=== PATIENT | female | born 1955 | race Caucasian/White ===

== ENCOUNTER 2016-08-27 19:23 | Day surgery (SDC) | payer BC ==
[~2016-08-27] VITALS: Ht 170.2 cm; Wt 83.6 kg
[~2016-08-27 19:23] MED LIST: AMOX500C2 PO; ASPI325T PO; FLUT9.9S EA NOSTRIL; GUAI120015 PO; IBUP-1547 PO; LEVO25TA9 PO; POLY17PO6 PO; ROSU20TA23 PO; TRAM50TA53 PO; VARE1TAB22 PO; Zicam; [UNRECOGNIZED DRUG - OTHER] PO
--- OUTSIDE RECORDS SUMMARY | 2016-08-27 19:27 | XMS REPORT | Referral Summary ---
Author Author [facility] Organization [facility] Address Unknown Phone Unavailable Care Team Providers Care Hair Worker Name Role Phone Sully Lerma Primary Care Physician [phone] Encounter Date(s): 03/25/16 - 03/25/16 [facility] [address] [place] [address] HEATH Lujan [id number] Discharge Diagnosis: Visit for suture removal Discharge Disposition: 01-Home or Self Care Attending Physician: Laquita Negron APRN Admitting Physician: Laquita Negron APRN Vital Signs Most recent to 1 oldest [Reference Range]: Temperature Tympanic 36.7 degC [36.6-38.1 degC] (03/25/16 10:46 AM) Problem List Condition Effective Dates Status Health Status Informant Bladder Active problem(Confirmed) Bronchitis(Confirmed Active ) Depression(Confirmed Active ) Deviated Active septum(Confirmed) 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 , 1 tabs Oral BID Start Date: 03/20/16 Status: Ordered Chantix Starter Pack 0.5 mg-1 mg oral tablet 1 tabs, Oral, BID, as directed on package labeling, # 53 tabs, 0 Refill(s) Start Date: 01/23/16 Status: Ordered CoQ10 mg, Oral, Daily, 0 Refill(s) Start Date: 09/07/15 Status: Ordered Crestor 20 mg oral tablet 20 mg 1 tabs, Oral, Daily, # 90 tabs, 3 Refill(s), Pharmacy: [id number], 1 tabs Oral Daily Start Date: 12/18/15 Status: Ordered Fish Oil oral capsule 1 caps, Oral, Daily, # 100 caps, 0 Refill(s) Start Date: 09/07/15 Status: Ordered Ginkgo Biloba oral capsule Oral, Daily, 0 Refill(s) Start Date: 09/07/15 Status: Ordered ibuprofen 600 mg oral tablet 600 mg 1 tabs, Oral, QID, as needed for pain, # 40 tabs, 0 Refill(s) Start Date: 02/28/16 Status: Ordered levothyroxine 25 mcg (0.025 mg) oral tablet 25 mcg 1 tabs, Oral, Daily, # 90 tabs, 3 Refill(s), Pharmacy: [id number], 1 tabs Oral Daily Start Date: 12/18/15 Status: Ordered Multivitamins oral tablet 1 tabs, Oral, Daily Start Date: 01/25/14 Status: Ordered naproxen 500 mg oral tablet 500 mg 1 tabs, Oral, BID, # 60 tabs, 0 Refill(s), Pharmacy: [id number], 1 tabs Oral BID Start Date: 12/03/15 Status: Ordered Cindy's wort oral tablet Oral, Daily, 0 Refill(s) Start Date: 09/07/15 Status: Ordered Ultram 50 mg oral tablet 50 mg 1 tabs, Oral, q6hr, as needed for pain, # 30 tabs, 0 Refill(s) Start Date: 02/22/16 Stop Date: 02/21/17 Status: Ordered Results No data available for this section Immunizations Vaccine Date Refusal Reason tetanus/diphth/pertuss (Tdap) adult/adol 02/04/10 pneumococcal 23-polyvalent vaccine 02/18/10 tetanus-diphth toxoids (Td) adult/adol 12/30/99 Procedures Procedure Date Related Diagnosis Body Site Basal cell carcinoma of ear1 03/13/16 Colonoscopy2, 3 03/15/10 gall bladder4 1992 Appendectomy 1982 Hysterectomy 1982 Tonsillectomy 1964 Arthroscopy of shoulder Fusion of c-spine Laminectomy Polypectomy - vocal cord 1right ear, excised in the operating room., margins clear 2See Conversion Document 3See NextGen: 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 4See Conversion Document Social History Social History Type Response Smoking Status Former smoker; Type: Cigarettes Assessment and Plan Extracted from: Title: Office Visit Note Author: Laquita Negron CHILDREN'S MINISTRY DIRECTOR Date: 03/25/16 Assessment/Plan 1.Visit for suture removal Pathologyindicates basal cell carcinoma margins clear. Sutures removed without difficulty and Steri-Strips applied. Return to our office on an as-needed basis and continue with general medical care through your primary care physician. Ordered: Postoperative Est [id number] Extracted from: Title: Ambulatory Patient Education Author: Laquita Negron CHILDREN'S MINISTRY DIRECTOR Date : 03/25/16 Procedures Suture Removal, Care After Refer to this sheet in the next few weeks. These instructions provide you with information on caring for yourself after your procedure. Your health care provider may also give you more specific instructions. Your treatment has been planned according to current medical practices, but problems sometimes occur. Call your health care provider if you have any problems or questions after your procedure. WHAT TO EXPECT AFTER THE PROCEDURE After your stitches (sutures) are removed, it is typical to have the following: Some discomfort and swelling in the wound area. Slight redness in the area. HOME CARE INSTRUCTIONS If you have skin adhesive strips over the wound area, do not take the strips off. They will fall off on their own in a few days. If the strips remain in place after 14 days, you may remove them. Change any bandages (dressings) at least once a day or as directed by your health care provider. If the bandage sticks, soak it off with warm, soapy water. Apply cream or ointment only as directed by your health care provider. If using cream or ointment, wash the area with soap and water 2 times a day to remove all the cream or ointment. Rinse off the soap and pat the area dry with a clean towel. Keep the wound area dry and clean. If the bandage becomes wet or dirty, or if it develops a bad smell, change it as soon as possible. Continue to protect the wound from injury. Use sunscreen when out in the sun. New scars become sunburned easily. SEEK MEDICAL CARE IF: You have increasing redness, swelling, or pain in the wound. You see pus coming from the wound. You have a fever. You notice a bad smell coming from the wound or dressing. Your wound breaks open (edges not staying together). This information is not intended to replace advice given to you by your health care provider. Make sure you discuss any questions you have with your health care provider. Document Released: 01/27/2002 Document Revised: 02/22/2014 Document Reviewed: [employer] Interactive Patient Education 2016 [employer] No follow up information was provided.
--- OUTSIDE RECORDS SUMMARY | 2016-08-27 19:28 | XMS REPORT | Referral Summary ---
Author Author [facility] Organization [facility] Address Unknown Phone Unavailable Care Team Providers Care Cloth Washer Name Role Phone Sully Lerma Primary Care Physician [phone] Encounter VC Date(s): 02/27/16 - 02/27/16 [facility] [address] [place] [address] [place] [id number] Discharge Diagnosis: Changing skin lesion Discharge Disposition: 01-Home or Self Care Attending Physician: Brian Amaya MD Referring Physician: Yrn Lerma MD Vital Signs Most recent to 1 oldest [Reference Range]: Temperature Tympanic 36.7 degC [36.6-38.1 degC] (02/27/16 1:06 PM) Peripheral Pulse 64 bpm Rate [60-100 bpm] (02/27/16 1:06 PM) Respiratory Rate 18 br/min [14-20 br/min] (02/27/16 1:06 PM) Blood Pressure 122/70 mmHg [90-140/60-90 mmHg] (02/27/16 1:06 PM) SpO2 98 % (02/27/16 1:06 PM) Problem List Condition Effective Dates Status Health [...] 1 tabs, Oral, BID, # 56 tabs, 3 Refill(s), Pharmacy: [id number] , 1 tabs Oral BID Start Date: 01/23/16 Status: Ordered Chantix Starter Pack 0.5 mg-1 mg oral tablet 1 tabs, Oral, BID, as directed on package labeling, # 53 tabs, 0 Refill(s) Start Date: 01/23/16 Status: Ordered ciprofloxacin 500 mg, Oral, Daily, 0 Refill(s) Start Date: 01/23/16 Stop Date: 02/02/16 Status: Ordered CoQ10 mg, Oral, Daily, 0 Refill(s) Start Date: 09/07/15 Status: Ordered Crestor 20 mg oral tablet 20 mg 1 tabs, Oral, Daily, # 90 tabs, 3 Refill(s), Pharmacy: [id number], 1 tabs Oral Daily Start Date: 12/18/15 Status: Ordered Fish Oil oral capsule 1 caps, Oral, Daily, # 100 caps, 0 Refill(s) Start Date: 09/07/15 Status: Ordered Ginkgo Biloba oral capsule Oral, Daily, 0 Refill(s) Start Date: 09/07/15 Status: Ordered levothyroxine 25 mcg (0.025 mg) oral tablet 25 mcg 1 tabs, Oral, Daily, # 90 tabs, 3 Refill(s), Pharmacy: [id number], 1 tabs Oral Daily Start Date: 12/18/15 Status: Ordered Multivitamins oral tablet 1 tabs, Oral, Daily Start Date: 01/25/14 Status: Ordered naproxen 500 mg oral tablet 500 mg 1 tabs, Oral, BID, # 60 tabs, 0 Refill(s), Pharmacy: [id number], 1 tabs Oral BID Start Date: 12/03/15 Status: Ordered Harborton's wort oral tablet Oral, Daily, 0 Refill(s) [...] Procedures Procedure Date Related Diagnosis Body Site Colonoscopy1, 2 03/15/10 gall bladder3 1992 Appendectomy 1982 Hysterectomy 1982 Tonsillectomy 1964 Arthroscopy of shoulder Fusion of c-spine Laminectomy Polypectomy - vocal cord 1See Conversion Document 2See NextGen: 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 3See Conversion Document Social History Social History Type Response Smoking Status Former smoker; Type: Cigarettes Assessment and Plan Extracted from: Title: Office Visit Note Author: Brian Amaya MD Date: 02/27/16 Assessment/Plan 1.Changing skin lesion Ordered: Office Visit Level 2 New [address] Plan: Excisional Biopsy of Suspicious Skin Lesion Involving Right Pinna I did review the patient's chart including a office note performed by PCPs tacking stitch remover from January 23, 2016. I informed the patient that this skin lesion involving her right earin my opinion appeared suspicious in nature and I would therefore recommend proceeding with an excisional biopsy. Patient understood and wished to proceed. The area of concern was prepped and draped in sterile fashion. One percent lidocaine with epinephrine was injected circumferentially around the skin lesion. The lesion was excised in a standard elliptical fashion. The elliptical incision was 1.0 cm in width and 2 cm in length. Aportion of the underlying cartilage was also excised facilitate closure. Hemostasis obtained with electrocautery.The incision was closed in layers with 3-0 Vicryl subcuticular stitches and 4-0 Prolene for skin edges. The patient was given post excision instruction and told to return to the clinic in 10-14 days, or sooner if any concerns arise.
--- OUTSIDE RECORDS SUMMARY | 2016-08-27 19:28 | XMS REPORT | Referral Summary ---
Author Author [facility] Organization [facility] Address Unknown Phone Unavailable Care Team Providers Care Cassandra Developer Name Role Phone Sully Lerma Primary Care Physician [phone] Encounter VC Date(s): 03/11/16 - 03/11/16 [facility] [address] [place] [address] HEATH Lujan [id number] Discharge Diagnosis: CA skin, basal cell Discharge Disposition: 01-Home or Self Care Attending Physician: Brian Amaya MD Admitting Physician: Brian Amaya MD Referring Physician: Yrn Lerma MD Vital Signs Most recent to 1 oldest [Reference Range]: Temperature Tympanic 36.7 degC [36.6-38.1 degC] (03/11/16 3:31 PM) Problem List Condition Effective Dates Status [...] BID, # 56 tabs, 3 Refill(s), Pharmacy: [id number] , 1 tabs Oral BID Start Date: [...] Daily, # 90 tabs, 3 Refill(s), Pharmacy: [id number], 1 tabs Oral Daily [...] Daily, # 90 tabs, 3 Refill(s), Pharmacy: [id number], 1 tabs Oral Daily Start Date: 12/18/15 Status: Ordered Multivitamins oral tablet 1 tabs, Oral, Daily Start Date: 01/25/14 Status: Ordered naproxen 500 mg oral tablet 500 mg 1 tabs, Oral, BID, # 60 tabs, 0 Refill(s), Pharmacy: [id number], 1 tabs Oral BID Start Date: 12/03/15 Status: Ordered Sweet Water 5 mg-325 mg oral tablet 1 tabs, Oral, q6hr, as needed for pain, # 25 tabs, 0 Refill(s), other reason (Rx ) Start Date: 02/28/16 Stop Date: 03/13/16 Status: Ordered Cindy's wort oral tablet Oral, [...] Cigarettes Assessment and Plan Extracted from: Title: Ambulatory Patient Education Author: Brian Amaya MD Date: Family Medicine Basal Cell Carcinoma Basal cell carcinoma is the most common form of skin cancer. It begins in the basal cells, which are at the bottom of the outer skin layer (epidermis). CAUSES Sun exposure is the most common cause of basal cell carcinoma. Basal cell carcinoma occurs most often on parts of the body that are frequently exposed to the sun, including the: Scalp. Ears. Neck. Face. Arms. Backs of the hands. Legs. However, basal cell carcinoma can occur anywhere on the body. Rarely, tumors develop on areas not exposed to the sun. Other causes of basal cell carcinoma can include: Exposure to arsenic. Exposure to radiation. Certain genetic syndromes, such as xeroderma pigmentosum. RISK FACTORS People at highest risk for basal cell carcinoma include those with: Fair skin. Blonde or red hair. Blue, green, or issa eyes. Childhood freckling. Factors that increase your risk for basal cell carcinoma include: Sun exposure over long periods of time. Childhood sun exposure appears to be a more significant factor than sun exposure as an adult. Repeated sunburns. Use of tanning beds. Having a weakened immune system. SYMPTOMS Five signs of basal cell carcinoma are: An open sore that bleeds, oozes, or crusts. The sore may remain open for 3 or more weeks. This can be an early sign of basal cell carcinoma. Basal cell carcinoma can mimic a pimple that will not heal. A reddish or irritated area which may crust, itch, or cause discomfort. This may occur on areas expose d to the sun. These patches might be easier felt than seen. A shiny, pearly, or translucent bump that is pink, red, or white. The bump may also be aguirre, black, or brown, especially in dark haired people. These bumps can be confused with moles. A pink growth with a slightly elevated, rolled border, and a crusted indentation in the center. As the growth slowly enlarges, tiny blood vessels may develop on the surface. A scar-like white, yellow, or waxy area that looks like shiny, stretched skin. It often has irregular borders. This may be a sign of more aggressive basal cell carcinoma. DIAGNOSIS Your caregiver may be able to tell what is wrong by doing a physical exam. Often , a tissue sample (biopsy) is also taken. The tissue is examined under a microscope. TREATMENT The treatment for basal cell carcinoma depends on the type, size, location, and number of tumors. Possible treatments include: Mohs surgery. This is a procedure done by a skin doctor (knotting machine operator or Mohs surgeon) in his or her office. The cancerous cells are removed layer by layer. This treatment has a high cure rate. Surgical removal of the tumor. Freezing the tumor with liquid nitrogen (cryosurgery). Plastic surgery to remove the tumor, in the case of large tumors. Radiation. This may be used for tumors on the face. Photodynamic therapy. A chemical cream is applied to the skin and light exposure is used to activate the chemical. Chemical treatments, such as imiquimod cream and interferon injections. This may be used to remove superficial tumors with minimal scarring. Electrodesiccation and curettage. This involves alternately scraping and burning the tumor, using an electric current to control bleeding. Basal cell carcinoma can almost always be cured. It rarely spreads to other areas of the body (metastasizes). Basal cell carcinoma may come back at the same location (recur), but it can be treated again if this occurs. PREVENTION Avoid the sun between 10:00 a.m. and 4:00 pm when it is the strongest. Use a sunscreen or sunblock with a sun protection factor of 30 or greater. Apply sunscreen at least 30 minutes before exposure to the sun. Reapply sunscreen every 2 to 4 hours while you are outside, after swimming, and after excessive sweating. Always wear protective hats, clothing, and sunglasses with ultraviolet protection. Avoid tanning beds. HOME CARE INSTRUCTIONS Avoid unprotected sun exposure. Follow your caregiver's instructions for self-exams. Look for new spots or changes in your skin. Keep all follow-up appointments as directed by your caregiver. SEEK MEDICAL CARE IF: You notice any new spots or changes in your skin. You have had a basal cell carcinoma tumor removed and you notice a new growth in the same location. This information is not intended to replace advice given to you by your health care provider. Make sure you discuss any questions you have with your health care provider. Document Released: 11/08/2003 Document Revised: 11/02/2012 Document Reviewed: [employer] Interactive Patient Education 2016 [employer] No follow up information was provided. Extracted from: Title: Office Visit Note Author: Brian Amaya MD Date: 03/11/16 Assessment/Plan 1.CA skin, basal cell Ordered: Postoperative Est [id number] Plan: Reexcision of Basal Cell CarcinomaInvolving Right Ear with Frozen Section, Possible Full Thickness Skin Grafting to Provide Closure. I did go over the patient's pathology report with herwhichdid return revealing that of abasal cell cancer involving her right ear. Unfortunately the lesion did extend to one of the lateral margins. The original lesionwason the order about 1.5 cmin length and about 0.8 cm in width. I informed the patient that I felt that we had a few options available to us. One option is to go ahead and proceed with reexcision inanoffice settingand attempt toobtain clear margins. I informed the patient that thereis a good likelihood thatclear marginswould be present upon reexcision. The other option would be is to proceed with reexcisionin the hospital setting under some sedationand submit the specimenfor a frozen section to document clear margins before proceedingwith closure. I informed the patient that I felt that it was unlikely but it is possible that askin graft may benecessary to provideclosure after reexcision. Patient elected to proceed with reexcision in the hospital. Patient will be scheduled.
--- OUTSIDE RECORDS SUMMARY | 2016-08-27 19:28 | XMS REPORT | Referral Summary ---
Author Author [facility] Organization [facility] Address Unknown Phone Unavailable Care Team Providers Care Paper Gluing Operator Name Role Phone Sully Lerma Primary Care Physician [phone] Encounter VC Date(s): 03/14/16 - 03/14/16 [facility] [address] [place] [address] [id number] Discharge Diagnosis: Post-op pain Discharge Disposition: 01-Home or Self Care Attending Physician: Brian Amaya MD Admitting Physician: Brian Amaya MD Referring Physician: Yrn Lerma MD Vital Signs Most recent to 1 oldest [Reference Range]: Temperature Tympanic 36.6 degC [36.6-38.1 degC] (03/14/16 12:24 PM) Problem List Condition Effective Dates Status [...] BID, # 56 tabs, 3 Refill(s), Pharmacy: [id number] , 1 tabs Oral BID Start Date: [...] Daily, # 90 tabs, 3 Refill(s), Pharmacy: [id number], 1 tabs Oral Daily Start [...] Daily, # 90 tabs, 3 Refill(s), Pharmacy: [id number], 1 tabs Oral Daily Start Date: 12/18/15 Status: Ordered Multivitamins oral tablet 1 tabs, Oral, Daily Start Date: 01/25/14 Status: Ordered naproxen 500 mg oral tablet 500 mg 1 tabs, Oral, BID, # 60 tabs, 0 Refill(s), Pharmacy: [id number], 1 tabs Oral BID Start Date: 12/03/15 Status: Ordered [place] 7.5 mg-325 mg oral tablet 1 tabs, Oral, q6hr, as needed for pain, # 20 tabs, 0 Refill(s) Start Date: 03/14/16 Stop Date: 03/21/16 Status: Ordered [place]'s wort oral tablet Oral, Daily, 0 Refill(s) Start Date: 09/07/15 Status: Ordered Ultram 50 mg oral tablet 50 mg 1 tabs, Oral, q6hr, as needed for pain, # 30 tabs, 0 Refill(s) Start Date: 02/22/16 Stop Date: 02/21/17 Status: Ordered Results No data available for this section Immunizations Vaccine Date Refusal Reason tetanus/diphth/pertuss (Tdap) adult/adol 9/20/10 pneumococcal 23-polyvalent vaccine 02/18/10 tetanus-diphth toxoids (Td) [...] Title: Office Visit Note Author: Laquita Negron TELEPHONE AD TAKER Date: 03/14/16 Assessment/Plan 1.Post-op pain Ordered: Postoperative Est 63028 This is a very tender areaand I am not surprised suture having a noticeable amount of postoperative pain. The incisionlooks good, there is no unexpectededema or redness. We'll go ahead and get toastronger prescription of [place], the 7.5 mgin youmay want to use this for a day and then drop down to the 5 mg and gradually get yourself weaned off to only taking ibuprofen. These narcotics are extremely constipating and MiraLAX should be taken on a daily basis. Keep the post op appointment for 2 weeks from now for suture removal. Call or return sooner if pain gets worse, there is increasing rednes or drainage from the incision, or other concerns. Extracted from: Title: Ambulatory Patient Education Author: Laquita Negron TELEPHONE AD TAKER Date : 03/14/16 Ophthalmology Pain Medicine Instructions HOW CAN PAIN MEDICINE AFFECT ME? You were given a prescription for pain medicine. This medicine may make you tired or drowsy and may affect your ability to think clearly. Pain medicine may also affect your ability to drive or perform certain physical activities. It may not be possible to make all of your pain go away, but you should be comfortable enough to move, breathe, and take care of yourself. HOW OFTEN SHOULD I TAKE PAIN MEDICINE AND HOW MUCH SHOULD I TAKE? Take pain medicine only as directed by your health care provider and only as needed for pain. You do not need to take pain medicine if you are not having pain, unless directed by your health care provider. You can take less than the prescribed dose if you find that a smaller amount of medicine controls your pain. WHAT RESTRICTIONS DO I HAVE WHILE TAKING PAIN MEDICINE? Follow these instructions after you start taking pain medicine, while you are taking the medicine, and for 8 hours after you stop taking the medicine: Do not drive. Do not operate machinery. Do not operate power tools. Do not sign legal documents. Do not drink alcohol. Do not take sleeping pills. Do not supervise children by yourself. Do not participate in activities that require climbing or being in high places. Do not enter a body of watersuch as a garcia, river, ocean, spa, or swimming poolwithout an adult nearby who can monitor and help you. HOW CAN I KEEP OTHERS SAFE WHILE I AM TAKING PAIN MEDICINE? Store your pain medicine as directed by your health care provider. Make sure that it is placed where children and pets cannot reach it. Never share your pain medicine with anyone. Do not save any leftover pills. If you have any leftover pain medicine, get rid of it or destroy it as directed by your health care provider. WHAT ELSE DO I NEED TO KNOW ABOUT TAKING PAIN MEDICINE? Use a stool softener if you become constipated from your pain medicine. Increasing your intake of fruits and vegetables will also help with constipation. Write down the times when you take your pain medicine. Look at the times before you take your next dose of medicine. It is easy to become confused while on pain medicine. Recording the times helps you to avoid an overdose. If your pain is severe, do not try to treat it yourself by taking more pills than instructed on your prescription. Contact your health care provider for help. You may have been prescribed a pain medicine that contains acetaminophen. Do not take any other acetaminophen while taking this medicine. An overdose of acetaminophen can result in severe liver damage. Acetaminophen is found in many uwex-syl-ylnrdyv (OTC) and prescription medicines. If you are taking any medicines in addition to your pain medicine, check the active ingredients on those medicines to see if acetaminophen is listed. WHEN SHOULD I CALL MY HEALTH CARE PROVIDER? Your medicine is not helping to make the pain go away. You vomit or have diarrhea shortly after taking the medicine. You develop new pain in areas that did not hurt before. You have an allergic reaction to your medicine. This may include: Itchiness. Swelling. Dizziness. Developing a new rash. WHEN SHOULD I CALL 911 OR GO TO THE EMERGENCY ROOM? You feel dizzy or you faint. You are very confused or disoriented. You repeatedly vomit. Your skin or lips turn pale or bluish in color. You have shortness of breath or you are breathing much more slowly than usual. You have a severe allergic reaction to your medicine. This includes: Developing tongue swelling. Having difficulty breathing. This information is not intended to replace advice given to you by your health care provider. Make sure you discuss any questions you have with your health care provider. Document Released: 08/10/2001 Document Revised: 09/18/2015 Document Reviewed: [employer] Interactive Patient Education 2016 [employer] Inc. No follow up information was provided.
--- OUTSIDE RECORDS SUMMARY | 2016-08-27 19:28 | XMS REPORT | Continuity of Care Document ---
Author Author [facility] Organization [facility] Address Unknown Phone Unavailable Support Name Relationship Address Phone ADARSH, SONALIBRII JAQUEZ Caregiver [address] [place] [address] Unavailable NELIDA HORAN MD Caregiver [address] [place] [address] Unavailable NICKI LESLIE Next Of Kin Unknown [phone] Insurance Providers Guarantor Bhavani Hill Address [address] [place] [address] * Email DENIED PT PORTAL Payer [facility] Policy Number [id number] Subscriber's Name Bhavani Hill Savana Relationship 18 Self Group Number [id number] Effective Date 08 Advance Directives Directive Response Recorded Date/Time Ordered Resuscitation Status Full Code 05/07/16 1:15pm Resuscitation Documents on File No 05/08/16 7:05am DPOA for Healthcare Only No 05/08/16 7:05am Living Will No 05/08/16 7:05am Problems No problem information available. Medications Current Home Medications Medication Dose Units Route Directions Days Qty Instructions Start Date Amoxicillin 500 Mg Capsule 1 Cap Oral Four Times Daily 05/07/16 Aspirin 325 Mg Tablet 1 Tab Oral Twice A Day 04/21/16 Fluticasone Propionate (Flonase Allergy Relief 50 Mcg/Actuation Nasal) 9.9 Ml [place].susp 2 [place] Each Nostril Daily 04/21/16 Guaifenesin (Mucinex) 1,200 Mg Tbbp.12hr 1 Tab Oral Twice A Day 30 Tablet 05/07/16 Ibuprofen 800 Mg Tablet 1 Tab Oral Every 6 Hours as needed for Pain 05/07/16 Levothyroxine Sodium 25 Mcg Tablet 25 Mcg Oral Before Breakfast Once daily before breakfast 03/13/16 Polyethylene Glycol 3350 (Miralax) 17 Gm Powd.pack 17 G Oral Daily as needed for Constipation 1 Bottle Take 17 Grams (1 capful), by mouth, once a day. 05/08/16 Rosuvastatin Calcium 20 Mg Tablet 1 Tab Oral Daily 03/12/16 Tramadol Hcl (Ultram) 50 Mg Tablet 1-2 Tab Oral Every 6 Hours as needed for Pain 30 Tablet 05/08/16 Varenicline Tartrate (Chantix) 1 Mg Tablet 1 Tab Oral Daily 03/12 Zicam 1 Dose Daily as needed for Cough/Congestion 04/21/16 Zijamoringaoleifera 1 Cap Oral Daily 04/21/16 Past Home Medications Medication Directions Ordered Status Asa 81MG , Daily 09/30/08 Discontinued B 12 Complex , Daily 09/30/08 Discontinued Citalopram Hydrobromide (Celexa) 20 Mg Tablet, 20 Mg Oral Daily 09/30/08 Discontinued Cyclobenzaprine Hcl 10 Mg Tablet, 10 Mg Oral As Needed 03/15/10 Discontinued One A Day , Daily 09/30/08 Discontinued P-Ephed/Acetaminophen/Doxylamn (Tylenol Sinus Nighttime Caplet) 1 Tab Tablet, 1 Tab Oral Bedtime 09/08/10 Discontinued Tramadol Hcl 50 Mg Tablet, 50 Mg Oral As Needed 11/22/10 Discontinued Social History Social History Problem Response Recorded Date/Time Onset Date Status Reason for Hospitalization Arthroscopy left knee 05/08/2016 8:24am Not Applicable Not Applicable Chewing Tobacco Status No 04/21/2016 9:36am Not Applicable Not Applicable Hx Substance Use No 04/21/2016 9:36am Not Applicable Not Applicable Hx Alcohol Use Y occasionally 04/21/2016 9:36am Not Applicable Not Applicable Has the pt used tobacco in the last 12 months Yes 04/21/2016 9:36am Not Applicable Not Applicable Query Response Start Date Stop Date Smoking Status Former smoker Hospital Discharge Instructions Instructions: Care Instructions: Discharge Diet: Resume normal diet as tolerated. Discharge Activity: Maintain leg elevataion while sitting and sleeping at night. Put a pillow under the ankle/foot, NOT under the knee. Follow Up Appointments: A Physical Therapy prescription may have been given to you. This should be scheduled for 2-3 days after surery. The first goal in physical therapy will be to restore full range of motion, followed bu quadriceps and hamstring muscle strengthening. FOLLOW UP APPT WITH DR. HORAN ON 05/21/16 @ 10:00AM. Pending Lab / Results: No Pending Lab Patient Instructions: Take Aspirin 325 mg by [facility] twice a day to help prevent blood clots. Expected Signs/Symptoms: You may develop bruising around your knee and down into you calf. Do not be alarmed; this is normal following surgery. If you develop significant calf swelling, redness, or tenderness, you should contact our office promptly. You may also develop a low-grade fever after surgery (up to 101.5 degrees). This is normal. You should perform 10 deep down breaths with forced, full exhalation every hour while awake to help keep your temperature down. Notify Physician If: You should contact our office if you develop significant drainage from the surgical incision, redness, or fever above 102 degrees. During Business Hours:: Please call our office at [phone]. After Business Hours:: After office hours, please call [facility] at [phone] and have the sausage machine operator page the physician. Pain Management/Treatment: Use prescribed medications Wound/Incision Care: Keep the incisions clean and dry. On post-op day #2 you may remove the dressing and place Band-Aids. DO NOT apply creams or ointments (bacitracin, triple antibiotic) to the incisions. You may shower on post-op day #2 with a plastic bag or plastic wrap (saran wrap) and tape around the knee to cover the surgical sites. Keep the wounds dry at all times, until your sutures are removed by the doctor. Do not soak the knee in water or go swimming until your sutures are removed. Use the kari wrap for 3 days. If Polar Care was placed in the OR, it should be used continuously until the dressings are removed. Apply ice packs or the Polar Care to the area 20-30 minues four times per day after dressing removal. Always maintain a layer of protection between ice or the Polar Care and the skin. Frostbite CAN develop if the skin isn't protected. Keep the Polar Care machine loaded with fresh ice. Condition at time of discharge: Good Plan of Care Discharge Date 05/08/16 9:10am Instructions/Education Provided [facility] Surgical Services Prescriptions See Medication Section Functional Status Query Response Date Recorded Ability to complete ADL's impeded by No change May 08, 2016 7:05am Allergies, Adverse Reactions, Alerts Allergen Type Severity Reaction Status Last Updated hydrocodone bit Adverse Reaction Mild BUGS CRAWLING ON HER Active 09/08/10 oxycodone HCl Adverse Reaction Mild STOMACH PROBLEMS Active 09/08/10 Niacin Adverse Reaction Unknown SEVERE FLUSHING Active 04/21/16 Codeine Allergy Unknown UNSURE, WAS TOLD NOT TO TAKE IT AGAIN Active 09/08 Immunizations Query Response on File Recorded Date/Time Hx Influenza Vaccination Y 201504/21/16 9:36am Hx Pneumococcal Vaccination Y 200904/21/16 9:36am Hx Influenza Vaccination Y 201504/21/16 9:36am Vital Signs Acute Vital Signs Vital Response Date/Time Temperature (Fahrenheit) 97.3 deg F (96.8 - 99.1) 05/08/2016 8:13am Temperature (Calculated Celsius) 36.08521 degrees C (36.0 - 37.3) 05/08/2016 8:13am Temperature Source Temporal 05/08/2016 8:13am Pulse Rate (adult) 54 bpm (60 - 100) 05/08/2016 9:00am Respiratory Rate 17 breaths/min (10 - 20) 05/08/2016 9:00am O2 Sat by Pulse Oximetry 95 % (90 - 100) 05/08/2016 9:00am Oxygen Delivery Method Room Air 03/13/2016 10:45am Oxygen Delivery Method Room Air 05/08/2016 9:00am Oxygen Flow Rate 6.00 L/min 05/08/2016 8:20am Blood Pressure 114/58 mm Hg 05/08/2016 9:00am Blood Pressure Source Automatic Cuff 05/08/2016 9:00am Height (Feet) 5 feet 05/08/2016 6:20am Height (Inches) 7.50 inches 05/08/2016 6:20am Weight (Kilograms) 83.800 kg 05/08/2016 6:20am Body Mass Index (BMI) 28.5 05/08/2016 6:20am Results Laboratory Results Test Name Result Units Flags Reference Collection Date/Time Result Date/ Time Comments White Blood Count 7.9 T/MM3 4.5-11.0 03/13/2016 8:34am 03/13/2016 8: 48am Red Blood Count 4.59 M/MM3 4.00-5.20 03/13/2016 8:34am 03/13/2016 8: 48am Hemoglobin 13.6 GM/DL -03/13/2016 8:34am 03/13/2016 8:48am Hematocrit 40.6 % 36-46 03/13/2016 8:34am 03/13/2016 8:48am Mean Corpuscular Volume 88.5 UM3 80-100 03/13/2016 8:34am 03/13/2016 8: 48am Mean Corpuscular Hemoglobin 29.6 UUG 26-34 03/13/2016 8:34am 2015 8:48am Mean Corpuscular Hemoglobin Concent 33.5 GM/DL 31-37 03/13/2016 8:34am 03/13/2016 8:48am RDW Standard Deviation 43.2 FL 36.9-50.2 03/13/2016 8:34am 03/13/2016 8 :48am Platelet Count 227 T/MM3 130-400 03/13/2016 8:34am 03/13/2016 8:48am Mean Platelet Volume 10.0 UM3 9.4-12.4 03/13/2016 8:34am 03/13/2016 8: 48am Neutrophils (%) (Auto) 54.4 % 33-66 03/13/2016 8:34am 03/13/2016 8: 48am Lymphocytes (%) (Auto) 35.8 % 23-45 03/13/2016 8:34am 03/13/2016 8: 48am Monocytes (%) (Auto) 6.9 % 0-9.0 03/13/2016 8:34am 03/13/2016 8:48am Eosinophils (%) (Auto) 2.0 % 0-4 03/13/2016 8:34am 03/13/2016 8:48am Basophils (%) (Auto) 0.6 % 0-2 03/13/2016 8:34am 03/13/2016 8:48am Immature Granulocyte % (Auto) 0.3 % 0.0-0.5 03/13/2016 8:34am 2015 8:48am Absolute Neutrophils (auto) 4.3 T/MM3 1.8-7.7 03/13/2016 8:34am 2015 8:48am Absolute Lymphocytes (auto) 2.8 T/MM3 1-4.8 03/13/2016 8:34am 2015 8:48am Absolute Monocytes (auto) 0.6 T/MM3 0-0.8 03/13/2016 8:34am 03/13/2016 8:48am Absolute Eosinophils (auto) 0.2 T/MM3 0-0.5 03/13/2016 8:34am 2015 8:48am Absolute Basophils (auto) 0.1 T/MM3 0-0.2 03/13/2016 8:34am 03/13/2016 8:48am Absolute Immature Granulocyte (auto 0.02 T/MM3 0.00-0.03 03/13/2016 8: 34am 03/13/2016 8:48am Icterus Index < 2 0-7 05/08/2016 6:45am 05/08/2016 7:09am Chemistry Specimen Hemolysis < 15 0-25 05/08/2016 6:45am 05/08/2016 7 :09am 0-25: Specimen Exhibited No Hemolysis. Turbidity < 20 0-20 05/08/2016 6:45am 05/08/2016 7:09am Sodium Level 143 MEQ/L 134-144 05/08/2016 6:45am 05/08/2016 7:09am Potassium Level 4.0 MEQ/L 3.6-5 05/08/2016 6:45am 05/08/2016 7:09am Chloride Level 110 MEQ/L H 98-107 05/08/2016 6:45am 05/08/2016 7:09am Carbon Dioxide Level 23 MEQ/L 22-05/08/2016 6:45am 05/08/2016 7: 09am Anion Gap 10 MEQ/L 5-15 05/08/2016 6:45am 05/08/2016 7:09am Blood Urea Nitrogen 15.0 MG/DL 7-17 05/08/2016 6:45am 05/08/2016 7: 09am Creatinine 0.7 MG/DL 0.7-1.2 05/08/2016 6:45am 05/08/2016 7:09am BUN/Creatinine Ratio 21 RATIO 6-05/08/2016 6:45am 05/08/2016 7:09am Glomerular Filtration Rate Calc 85 05/08/2016 6:45am 05/08/2016 7: 09am Glucose Level 111 MG/DL H 65-110 05/08/2016 6:45am 05/08/2016 7:09am Calculated Osmolality 277 MOSM/KG 261-280 05/08/2016 6:45am 05/08/2016 7:09am Calcium Level 9.6 MG/DL 8.4-10.2 05/08/2016 6:45am 05/08/2016 7:09am Procedures Procedure Status Date Provider(s) EXC F/E/E/N/L MAL+MRG 3.1-4 Completed 03/13/16 MARGARITA WASHBURN MD, FACS, CWS CMPLX RPR E/N/E/L 2.6-7.5 CM Completed 03/13/16 MARGARITA WASHBURN MD, FACS, CWS COMPLETE CBC W/AUTO DIFF WBC Completed 03/13/16"INJECTION, CEFAZOLIN SODIUM, 500 MG" Completed 03/13/16"INJECTION, MIDAZOLAM HYDROCHLORIDE, PER 1 MG" Completed 03/13/16"INJECTION, MIDAZOLAM HYDROCHLORIDE, PER 1 MG" Completed 03/13/16"INJECTION, FENTANYL CITRATE, 0.1 MG" Completed 03/13/16"RINGERS LACTATE INFUSION, UP TO 1000 CC" Completed 03/13/16"INJECTION, BUPIVICAINE HYDROCHLORIDE, 30 ML" Completed 03/13/16"INJECTION, BUPIVICAINE HYDROCHLORIDE, 30 ML" Completed 03/13/16 Knee arthroscopy, left Completed 05/08/16 NELIDA HORAN MD Encounters Encounter Location Arrival/Admit Date Discharge/Depart Date Attending Provider Departed Surgical [facility] 05/08/16 6:23am 05/08/16 9: 10am NELIDA HORAN MD Departed Surgical [facility] 03/13/16 7:43am 03/13/16 1: 30pm MARGARITA WASHBURN FACS [facility]
--- OUTSIDE RECORDS SUMMARY | 2016-08-27 19:28 | XMS REPORT | Referral Summary ---
Author Author [facility] Organization [facility] Address Unknown Phone Unavailable Care Team Providers Care Brand Marketing Intern Name Role Phone Sully Lerma Primary Care Physician [phone] Encounter VC Date(s): 02/28/16 - 02/28/16 [facility] [address] [place] [address] HEATH Lujan [id number] Discharge Disposition: 01-Home or Self Care Attending Physician: Brian Amaya MD Admitting Physician: Brian Amaya MD Referring Physician: Yrn Lerma MD Vital Signs Most recent to 1 oldest [Reference Range]: Temperature Tympanic 37.1 degC [36.6-38.1 degC] (02/28/16 9:22 AM) Problem List Condition Effective Dates Status [...] BID, # 56 tabs, 3 Refill(s), [id number] , 1 tabs Oral BID Start Date: [...] Daily, # 90 tabs, 3 Refill(s), Pharmacy: [id number], 1 tabs Oral Daily [...] 0 Refill(s) Start Date: 02/28/16 Status: Ordered Keflex 250 mg oral capsule 250 mg 1 caps, Oral, QID, X 7 days, # 28 caps, 0 Refill(s), Pharmacy: [id number], 1 caps Oral QID,x7 days Start Date: 02/28/16 Stop Date: 03/06/16 Status: Ordered levothyroxine 25 mcg (0.025 mg) oral tablet 25 mcg 1 tabs, Oral, Daily, # 90 tabs, 3 Refill(s), Pharmacy: [id number], 1 tabs Oral Daily Start Date: 12/18/15 Status: Ordered Multivitamins oral tablet 1 tabs, Oral, Daily Start Date: 01/25/14 Status: Ordered naproxen 500 mg oral tablet 500 mg 1 tabs, Oral, BID, # 60 tabs, 0 Refill(s), Pharmacy: [id number], 1 tabs Oral BID Start Date: 12/03/15 Status: Ordered [place] 5 mg-325 mg oral tablet 1 tabs, Oral, q6hr, as needed for pain, # 25 tabs, 0 Refill(s), other reason (Rx ) Start Date: 02/28/16 Stop Date: 03/13/16 Status: Ordered [place]'s wort oral tablet Oral, Daily, 0 Refill(s) [...] Colonoscopy1, 2 03/15/10 gall bladder3 1992 Appendectomy 1981 Hysterectomy 1981 Tonsillectomy 1964 Arthroscopy of shoulder Fusion of c-spine Laminectomy Polypectomy - vocal cord 1See Conversion Document 2See NextGen: 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 3See Conversion Document Social History Social History Type Response Smoking Status Former smoker; Type: Cigarettes Assessment and Plan Extracted from: Title: Evaluate Surgical site Author: Shleley Bowen RN Date: Patient had called this morning reporting that the area on her right ear where a lesion was removed yesterday is very painful, red and bleeding. The pinna of the right ear is very red, there is minimal swelling. It is warm to the touch and very sensitive/painful. She reports the ear throbs and the pain radiates down to her jaw. Area cleansed with sterile water. There was dried blood on it and patient reports it bled through the night. There is no bleeding/drainage at this time. Dr. Amaya notified by phone as he is in surgery. He ordered Keflex and Interv[place]. Prescriptions provided to the patient. Antibiotic ointment applied to ear and patient is to call if she does not have any improvement or gets worse. Patient voices understanding.
--- NOTE | 2016-08-27 19:47 | NUR ---
DR DR MENSAH AT BEDSIDE.
[2016-08-27] MEDS ORDERED: [UNRECOGNIZED DRUG - OTHER] PO (19:53)
--- NOTE | 2016-08-27 20:01 | ERPDOC ---
Departure Disposition Decision Date: Aug 27, 2016 Disposition Decision Time: 21:46 Disposition: 02 TO [facility] Impression Impression Impression: Primary Impression: Chest pain, rule out acute myocardial infarction Severity: Moderate Condition: Stable Seen By: Physician only Referrals: SONALI ALTAMIRANO APRN (Family) Problems/Meds/Labs Reviewed?: Yes Medications reviewed and manag: Yes Follow up care ordered?: Yes Mental Status: Alert, Oriented Scripts Metoprolol Succinate (Metoprolol Succinate) 25 Mg Tab.er.24h 25 MG PO DAILY for 30 Days, #30 TAB 2 Refills Prov: MARIA DEL ROSARIO HUNT MD 08/28/16 Ibuprofen (Ibuprofen) 600 Mg Tablet 1 TAB PO Q6H Y for PAIN, #15 TAB 0 Refills Prov: MARIA DEL ROSARIO HUNT MD 08/28/16 Nitroglycerin (Nitrostat) 0.4 Mg Tablet 0.4 MG SL Q5MIN Y for ANGINA, #30 TAB 0 Refills Prov: MARIA DEL ROSARIO HUNT MD 08/28/16 HPI - Chest Pain General Chief Complaint: Nausea,Vomiting,Diarrhea Stated Complaint: HIGH BLOOD PRESSURE, NAUSEA,HEADACHE Time Seen by Provider: 20:00 Source: patient Exam Limitations: no limitations HPI - Chest Pain Initial Comments Patient is a 60-year-old female presents emergency room for evaluation of headache, nausea and left sided pain that she describes as upper abdomen which is actually lower chest. Patient states she's had this pain off and on throughout the day she considered it was a gas bubble she has been passing gas, however that has not relieved the pain. Pain is not worse on inspiration, does have some associated nausea and no diaphoresis. Patient also with a mild headache, decided now to present to the ER for evaluation. Occurred At: home Onset/Timing: Rapid Duration: 6-12 hrs Pain/Severity Scale: Now & Worst: 6/10 Location: anterior L Quality: pressure, 'pain' Allergies: Coded Allergies: codeine (Unverified Allergy, Unknown, UNSURE, WAS TOLD NOT TO TAKE IT AGAIN, 09/08/10) hydrocodone bit (Verified Adverse Reaction, Mild, BUGS CRAWLING ON HER, 10/04) oxycodone HCl (Verified Adverse Reaction, Mild, STOMACH PROBLEMS, 09/08/10) niacin (Verified Adverse Reaction, Unknown, SEVERE FLUSHING, 04/21/16) Past History Past Medical History Metabolic: hypercholesterolemia, hypothyroidism Neurological: TIA Musculoskeletal: osteoarthritis Surgical History General: gallbladder Family History Family PMH: FOUND: [place], diabetes, hypertension Vaccines Hx Influenza Vaccination: Yes (2015) Hx Pneumococcal Vaccination: Yes (2009) Social History Smoking Status: Current every day smoker Does patient use chewing tobac: No Second Hand Exposure: No Substance Use Type: does not use Alcohol Intake: occasionally Physical Exam General Vitals and Pain First Documented Vital Signs Date Time Temp Pulse Resp B/P Pulse Ox O2 Delivery O2 Flow Rate FiO2 08/27/16 19:30 98.8 95 16 150/91 98 Room Air Weight: Kilograms: 84.400 Height (feet): 5 Height (inches): 7.50 Triage Pain Scale: Progress Results/Orders Orders Procedure Category Date Status Time Cbc W/Auto LAB 08/27/16 Complete Diff-Reflex Manual 20:01 Cmp - Comprehensive LAB 08/27/16 Complete Metabolic 20:01 Probnp LAB 08/27/16 Complete 20:01 Troponin I W LAB 08/27/16 Complete Hemolysis Index 20:01 D-Dimer LAB 08/27/16 Complete 20:01 Magnesium LAB 08/27/16 Complete 20:01 EKG EKG 08/27/16 Taken 20:01 Chest 1 View RAD 08/27/16 Taken 20:01 Iv Lock (Ed Only) EDM 08/27/16 Transmitted 20:01 Ondansetron Inj PHA 08/27/16 Complete (Zofran) 20:15 Ketorolac (Toradol) PHA 08/27/16 Complete 20:15 Ct Head W/O Contrast CT 08/27/16 Taken 20:20 Nitroglycerin PHA 08/27/16 In Process Ointment (Nitro-Bid) 21:45 Enoxaparin (Lovenox) PHA 08/27/16 In Process 21:45 Place In Facility: ED ADM 08/27/16 Transmitted 21:41 Measure Vital Signs JERRY 08/27/16 In Process 21:41 Up In Room With Assist JERRY 08/27/16 In Process 21:41 Npo: Nothing By Mouth DIET 08/28/16 Transmitted Breakfast Iv Lock (Nursing) JERRY 08/27/16 In Process 21:41 Prn Orders (Adult) PHA 08/27/16 In Process (May Use Prn Orders) 21:45 Troponin I W LAB 4/13/17 Verified Hemolysis Index 02:30 Troponin I W LAB 08/28/16 Verified Hemolysis Index 08:30 Troponin I W LAB 08/28/16 Verified Hemolysis Index 14:30 Telemetry JERRY 08/27/16 In Process 21:41 Nitroglycerin PHA 08/27/16 In Process (Nitrostat) 21:45 Morphine Sulfate PHA 08/27/16 In Process (Morphine) 21:45 Morphine Sulfate PHA 08/27/16 In Process (Morphine) 21:45 Lab Results Laboratory Tests Test 08/27/16 20:23 08/27/16 20:24 D-Dimer < 150NG/ML Turbidity < 20 Sodium Level 146MEQ/L Potassium Level 3.9MEQ/L Chloride Level 107MEQ/L Carbon Dioxide Level 25MEQ/L Anion Gap 14MEQ/L Blood Urea Nitrogen 19.0MG/DL Creatinine 0.7MG/DL Glomerular Filtration Rate Calc 85 BUN/Creatinine Ratio 27RATIO Glucose Level 113MG/DL Calculated Osmolality 284MOSM/KG Calcium Level 10.2MG/DL Magnesium Level 2.2MG/DL Total Bilirubin 0.60MG/DL Icterus Index < 2 Aspartate Amino Transf (AST/SGOT) 26U/L Alanine Aminotransferase (ALT/SGPT) 32U/L Alkaline Phosphatase 89U/L Troponin I < 0.012ng/ml UP-Lht-Q-Type Natriuretic Peptide 50PG/ML Total Protein 7.4G/DL Albumin 4.4G/DL Globulin 3.0G/DL Albumin/Globulin Ratio 1.5RATIO Chemistry Specimen Hemolysis < 15 White Blood Count 11.3T/MM3 Red Blood Count 4.81M/MM3 Hemoglobin 14.3GM/DL Hematocrit 42.5% Mean Corpuscular Volume 88.4UM3 Mean Corpuscular Hemoglobin 29.7UUG Mean Corpuscular Hemoglobin Concent 33.6GM/DL RDW Standard Deviation 45.5FL Platelet Count 229T/MM3 Mean Platelet Volume 9.8UM3 Immature Granulocyte % (Auto) 0.3% Neutrophils (%) (Auto) 64.1% Lymphocytes (%) (Auto) 26.9% Monocytes (%) (Auto) 7.1% Eosinophils (%) (Auto) 1.2% Basophils (%) (Auto) 0.4% Absolute Immature Granulocyte (auto 0.03T/MM3 Absolute Neutrophils (auto) 7.3T/MM3 Absolute Lymphocytes (auto) 3.1T/MM3 Absolute Monocytes (auto) 0.8T/MM3 Absolute Eosinophils (auto) 0.1T/MM3 Absolute Basophils (auto) 0.0T/MM3 Medications Current ED Medications Ondansetron HCl (Zofran) 4 mg O ONCE IV Last administered on 08/27/16 20:29; Start 08/27/16 at 20:15; Stop 08/27/16 at 20:16; Status DC Ketorolac Tromethamine (Toradol) 15 mg O ONCE IV Last administered on 20:33; Start 08/27/16 at 20:15; Stop 08/27/16 at 20:16; Status DC Nitroglycerin (Nitro-Bid) 0.5 inch O ONCE TOP ; Start 08/27/16 at 21:45; Stop 08/27/16 at 21:46 Enoxaparin Sodium (Lovenox) 85 mg O ONCE SQ ; Start 08/27/16 at 21:45; Stop 05/03 at 21:46 Miscellaneous Medication (May use PRN orders) PRN PRN MC ; Start 08/27/16 at 21:45 Nitroglycerin (Nitrostat) 0.4 mg Q5MIN PRN SL CHEST TIGHTNESS; Start 08/27/16 at 21:45 Morphine Sulfate (Morphine) 2 mg Q2H PRN IV PAIN; Start 08/27/16 at 21:45 Morphine Sulfate (Morphine) 4 mg O ONCE IV ; Start 08/27/16 at 21:45; Stop 05/03 at 21:46 EKG EKG : Rate: 60-100 Rhythm: sinus [place]: normal QRS: normal Intervals: normal ST/T: depressed (minimal but present) Interpreted by: signing physician Xray Xray : Xray: CXR Portable Interpretation: Normal, Reviewed Written Report CT CT : CT: Head no contrast Interpretation: Normal, Reviewed Written Report ASTON MENSAH MD Aug 27, 2016 20:01
[2016-08-27] MEDS ORDERED: KETOROLAC 30mg/ml INJECTION IV ONE (20:15)
[2016-08-27] MEDS ORDERED: ONDANSETRON 4mg/2ml INJECTION IV ONE (20:15)
--- NOTE | 2016-08-27 20:22 | NUR ---
IVL/MEDS PT GIVEN INSTRUCTION REGARDING IVL/MEDS. UNDERSTANDING VERBALIZED.
[2016-08-27 20:29] LABS: BASOPHILS % (AUTO) 0.4 % (0-2); EOSINOPHILS # (AUTO) 0.1 T/MM3 (0-0.5); EOSINOPHILS % (AUTO) 1.2 % (0-4); HCT - HEMATOCRIT 42.5 % (36-46); HGB - HEMOGLOBIN 14.3 GM/DL (12-16); IMMATURE GRANULOCYTE # (AUTO) 0.03 T/MM3 (0.00-0.03); IMMATURE GRANULOCYTE % (AUTO) 0.3 % (0.0-0.5); LYMPHOCYTES # (AUTO) 3.1 T/MM3 (1-4.8); LYMPHOCYTES % (AUTO) 26.9 % (23-45); MEAN CORPUSCULAR HGB 29.7 UUG (26-34); MEAN CORPUSCULAR HGB CONC(MCHC 33.6 GM/DL (31-37); MEAN CORPUSCULAR VOLUME 88.4 UM3 (80-100); MEAN PLATELET VOLUME 9.8 UM3 (9.4-12.4); MONOCYTES # (AUTO) 0.8 T/MM3 (0-0.8); MONOCYTES % (AUTO) 7.1 % (0-9.0); NEUTROPHILS #(AUTO)-ABSOLUTE 7.3 T/MM3 (1.8-7.7); NEUTROPHILS % (AUTO) 64.1 % (33-66); RED BLOOD COUNT 4.81 M/MM3 (4.00-5.20); WBC - WHITE BLOOD COUNT 11.3 T/MM3 (4.5-11.0)
[2016-08-27 20:43] LABS: ALBUMIN 4.4 G/DL (3.5-5.0); ALBUMIN/GLOBULIN RATIO 1.5 RATIO (1.1-2.2); ALKALINE PHOSPHATASE 89 U/L (38-126); ALT (SGPT) 32 U/L (9-52); ANION GAP 14 MEQ/L (5-15); AST (SGOT) 26 U/L (14-36); BUN/CREATININE RATIO 27 RATIO (6-26); CALCIUM 10.2 MG/DL (8.4-10.2); CHLORIDE 107 MEQ/L (98-107); CO2 - CARBON DIOXIDE 25 MEQ/L (22-30); CREATININE 0.7 MG/DL (0.7-1.2); GLOMERULAR FILTRATION RATE 85; GLUCOSE 113 MG/DL (65-110); MAGNESIUM 2.2 MG/DL (1.6-2.3); POTASSIUM 3.9 MEQ/L (3.6-5); SODIUM 146 MEQ/L (134-144); TOTAL PROTEIN 7.4 G/DL (6.3-8.2)
[2016-08-27 20:53] LABS: PROBNP 50 PG/ML (0-175)
--- NOTE | 2016-08-27 21:01 | NUR ---
CT PT TO CT VIA RNEY.
--- NOTE | 2016-08-27 21:20 | NUR ---
CT PT RETURNED.
--- NOTE | 2016-08-27 21:30 | NUR ---
STATUS PT DENIES CHEST PAIN. PT REPORTS HEADACHE, STATES 6-7/10. PT REPORTS HER NAUSEA HAS IMPROVED. DAUGHTER REMAINS AT BEDSIDE.
--- NOTE | 2016-08-27 21:34 | NUR ---
DR DR MENSAH AT BEDSIDE.
[2016-08-27] MEDS ORDERED: NITROGLYCERIN 2% OINTMENT 1 G PACKET TOP ONE (21:45)
[2016-08-27] MEDS ORDERED: PRN ORDERS MC (21:45)
[2016-08-27] MEDS ORDERED: MORPHINE SULFATE 4 MG SYRINGE IV ONE (21:45)
[2016-08-27] MEDS ORDERED: MORPHINE SULFATE 2 MG SYRINGE IV PRN (21:45)
[2016-08-27] MEDS ORDERED: ENOXAPARIN 100 MG/ML INJECTION SQ ONE (21:45)
--- NOTE | 2016-08-27 22:14 | NUR ---
REPORT CALLED TO [facility].
[2016-08-27 22:18] VITALS: BP 172/82; PULSE 82
--- NOTE | 2016-08-27 22:28 | NUR ---
ADMIT ARRIVED TO SURGICAL RM 122 FROM ED VIA WHEELCHAIR, CURRENTLY DENIES CHEST PAIN.
--- NOTE | 2016-08-27 22:28 | NUR ---
ADMIT PT TRANSFERRED TO SURGICAL UNIT VIA WC BY MARKO ADAME. PT'S PHONE AND CLOTHING ACCOMPANY.
[2016-08-27 22:36] VITALS: Ht 170.2 cm; Wt 83.6 kg
[2016-08-27] MEDS ORDERED: ONDANSETRON 4mg/2ml INJECTION IV PRN (23:45)
[2016-08-27] MEDS ORDERED: ONDANSETRON 4 MG TABLET PO PRN (23:45)
[2016-08-28] VITALS (21 sets, daily range): BP systolic 104–178; BP diastolic 50–88; PULSE 53–69; RESP 10–22; TEMP 97.8–98.9; O2SAT 91–98
[2016-08-28] MEDS: ACETAMINOPHEN 325 MG TABLET PO PRN ×2 (00:10→06:22)
[2016-08-28] MEDS ORDERED: NORMAL SALINE 1,000 ML IV SCH ×2 (06:00→13:00)
--- NOTE | 2016-08-28 08:09 | DI ---
Indication: ITS.REASON: left lower lateral chest pain PROCEDURE: CHEST 1 VIEW: Encounter: Initial Comparison: None FINDINGS: The lungs are clear. There is no abnormal airspace opacity, pleural effusion or pneumothorax identified. The heart size, pulmonary vasculature and mediastinum are within normal limits. No significant skeletal abnormality is seen. IMPRESSION: No acute cardiopulmonary abnormality. .
--- NOTE | 2016-08-28 08:09 | DI ---
Indication: ITS.REASON: ?slurring of speech PROCEDURE: CT HEAD W/O CONTRAST: Encounter: Initial Comparison: None Technique: Axial CT images through the head were performed without contrast. Iterative Reconstruction dose reducing technique was utilized. FINDINGS: The ventricles are of normal size, shape, and contour for the patient's age. There are scattered areas of low attenuation in the white matter which most likely represent changes from chronic microvascular ischemia. The brainstem, cerebellum, and cerebral hemispheres otherwise have a normal morphology and CT attenuation. There is no evidence of midline displacement. No hemorrhage, signs of acute territorial stroke, mass effect, mass lesions, or edema is evident. The visualized portions of the skull base, midface, and calvarium demonstrate no abnormality. The paranasal sinuses are well aerated and free of significant disease. The tympanic and mastoid cavities appear normal. IMPRESSION: No acute intracranial abnormality or hemorrhage. There is a preliminary report by [employer] radiologic. .
--- NOTE | 2016-08-28 09:34 | NUR ---
CM CM IN TO VISIT PATIENT, SHE IS A&O. 2 FEMALES PRESENT IN THE ROOM. PATIENT PLANS TO DISCHARGE HOME, MENTIONS SHE LIVES ALONE BUT HAS 2 DAUGHTERS CLOSE THAT CAN HELP IF NEEDED. DENIES DISCHARGE NEEDS. CM CONTACT INFORMATION PROVIDED. Addendum: 08/28/16 at 0935 by SHAUNA SARMIENTO RN Amended: Links added.
--- NOTE | 2016-08-28 09:45 | NUR ---
CHEST PAIN PT REPORTED ONSET OF CHEST PAIN AT THIS TIME. PT RATING PAIN A 4-5/10 INTENSITY, SHARP PAIN UNDER HER LEFT BREAST. PT AT REST AT THE TIME OF ONSET IN BED WITH HOB ELEVATED AND VISITING WITH DAUGHTERS. THIS RN ADMINISTERED 2MG OF MORPHINE IV. VITAL SIGNS STABLE ON ROOM AIR WITH BP 121/61, HR 60'S. TELE NSR/OCCASIONALLY SB. PT REPORTS SOME NAUSEA AND A HEADACHE THAT HAS BEEN CONTINUOUS THROUGHOUT THE NIGHT. CHEST PAIN CONTINUOUS SINCE ONSET AT 0945. AT 1006, RN ADMINISTERED NITROSTAT Q5MIN X3 PER DR. HUNT ORDER. PT ALSO HAS A NITRO PATCH TO RIGHT CHEST. DR. CASTILLO AWARE PATCH WAS IN PLACE. 2L OF O2 PLACED ON PT FOR COMFORT PURPOSES. PT 96% ON ROOM AIR PRIOR. BP REMAINS STABLE AND SBP ABOVE 90 DURING NITRO ADMINISTRATION. EKG ORDERED AND COMPLETED AT THIS TIME ALSO. WILL CONTINUE TO MONITOR. SEE NITRO ADMINISTRATION: 1006 - FIRST NITRO ADMINISTERED, CP 4-5/10, SHARP TO LEFT CHEST, BP 121/61, HR 60 1012 - SECOND NITRO ADMINISTERED, CP UNCHANGED, BP 104/57, HR 57 1020 - 3RD NITRO ADMINISTERED, CP 1/10, PT RESTING AND STATES "I AM GOING TO TRY TO GO TO SLEEP, BP 112/60, HR 55. WILL CONTINUE TO MONITOR CLOSELY.
[2016-08-28] MEDS: NITROGLYCERIN 0.4 MG SUBLINGUAL TABLET SL PRN ×3 (10:06→10:20)
[2016-08-28] MEDS ORDERED: HEPARIN 1,000units in NS 500ml BAG IV ONE ×2 (11:24→11:36)
[2016-08-28] MEDS ORDERED: LIDOCAINE 1% (10mg/ml) 30ml SDV ONE (11:25)
[2016-08-28] MEDS ORDERED: VERAPAMIL 5mg/2ml INJECTION IV ONE (11:26)
[2016-08-28] MEDS ORDERED: FENTANYL 100mcg/2ml INJECTION ONE (11:26)
[2016-08-28] MEDS ORDERED: MIDAZOLAM 2mg/2ml INJECTION ONE (11:26)
[2016-08-28] MEDS ORDERED: NITROGLYCERIN 50mg/10ml INJECTION IV ONE (11:26)
[2016-08-28] MEDS ORDERED: SALINE FLUSH 10ml SYRINGE ONE (11:27)
--- NOTE | 2016-08-28 11:28 | NUR ---
TO OTOLARYNGOLOGY TEACHER PT TRANSPORTED TO OTOLARYNGOLOGY TEACHER AT THIS TIME VIA CART AND ACCOMPANIED BY ALONSO GARCIA. INFORMED CONSENT OBTAINED. VITAL SIGNS STABLE ON ROOM AIR. FAMILY PRESENT UPON TRANSFER. WILL CONTINUE TO MONITOR CLOSELY.
[2016-08-28] MEDS ORDERED: IOHEXOL 350mg/ml 200ml BOTTLE ONE (11:35)
--- NOTE | 2016-08-28 12:15 | NUR ---
RETURN PT RETURNED TO ROOM 122 AT THIS TIME VIA CART. PT TRANSFERRED SELF FROM CART TO BED. HOB ELEVATED. BED ALARM ON. FAMILY PRESENT UPON RETURN. VITAL SIGNS STABLE ON ROOM AIR. NO S/S OF BLEEDING NOTED TO RIGHT WRIST. TR BAND IN PLACE. WILL CONTINUE TO MONITOR.
[2016-08-28] MEDS ORDERED: LORAZEPAM 2 MG/ML INJECTION IV PRN (13:00)
[2016-08-28] MEDS ORDERED: NITROGLYCERIN 0.4 MG SUBLINGUAL TABLET SL PRN (13:00)
[2016-08-28] MEDS ORDERED: ACETAMINOPHEN 325 MG TABLET PO PRN (13:00)
[2016-08-28] MEDS ORDERED: ATROPINE 1 MG/ML VIAL IV PRN (13:00)
[2016-08-28] MEDS ORDERED: METOCLOPRAMIDE 10mg/2ml INJECTION IV PRN (13:00)
[2016-08-28] MEDS ORDERED: BISACODYL 10 MG SUPPOSITORY RECTALLY PRN (13:00)
[2016-08-28] MEDS ORDERED: ONDANSETRON 4mg/2ml INJECTION IV PRN (13:00)
[2016-08-28] MEDS ORDERED: BISACODYL 5 MG E.C. TABLET PO PRN (13:00)
[2016-08-28] MEDS ORDERED: LORAZEPAM 0.5 MG TABLET PO PRN (13:00)
[2016-08-28] MEDS ORDERED: MILK OF MAGNESIA 30 ML SUSP PO PRN (13:00)
[2016-08-28] MEDS ORDERED: PROMETHAZINE 25 MG INJECTION IV PRN (13:00)
[2016-08-28] MEDS ORDERED: MAG-AL + SIM LIQUID 30 ML UDC PO PRN (13:00)
[2016-08-28] MEDS ORDERED: MORPHINE SULFATE 4 MG SYRINGE IV PRN ×2 (13:00)
--- NOTE | 2016-08-28 15:11 | NUR ---
TR BAND AFTER NO S/S OF BLEEDING NOTED FROM RIGHT RADIAL PUNCTURE SITE AND ALL AIR REMOVED FROM TR BAND, THIS RN REMOVED TR BAND AND APPLIED AN OCCLUSIVE GAUZE/TEGADERM DRESSING TO RIGHT WRIST. SPLINT REMAINS IN PLACE TO RIGHT WRIST. PT INSTRUCTED ON ACTIVITY AND LIFTING RESTRICTIONS TO RIGHT UPPER EXTREMITY. WILL REINFORCE THESE INSTRUCTIONS UPON DISCHARGE. VITAL SIGNS STABLE ON ROOM AIR AT THIS TIME. PT DENIES PAIN. PT VERBALIZED UNDERSTANDING. WILL CONTINUE TO MONITOR CLOSELY.
[2016-08-28] MEDS ORDERED: [UNRECOGNIZED DRUG - OTHER] PO SCH (15:45)
[2016-08-28] MEDS ORDERED: IBUP-2067 PO (16:01)
[2016-08-28] MEDS ORDERED: NITR0.4T SL (16:01)
[2016-08-28] MEDS ORDERED: METO-275 PO (16:01)
--- NOTE | 2016-08-28 16:35 | NUR ---
DISCHARGE PT DISCHARGED TO HOME AT THIS TIME IN THE COMPANY OF AN ADULT. PT AMBULATED SELF TO THE FRONT ENTRANCE WITH SUPERVISION OF STAFF. DISCHARGE INSTRUCTIONS INCLUDING DIET, ACTIVITY, MEDICATIONS, FOLLOW UP APPOINTMENT, [facility] TR HEART CATH INSTRUCTIONS, RESTRICTIONS AND REPORTABLE S/S GIVEN AND REVIEWED WITH PATIENT. FAMILY PRESENT IN ROOM UPON DISCHARGE TEACHING. PT VERBALIZED UNDERSTANDING OF THESE INSTRUCTIONS AND HAD NO FURTHER QUESTIONS. IVL DISCONTINUED. ARMBAND REMOVED. PERSONAL BELONGINGS RETURNED.
[2016-08-28] MEDS ORDERED: ASPIRIN 325 MG TABLET PO SCH (21:00)
--- NOTE | 2016-08-28 23:04 | HPF ---
HPI Mrs. Hill is a 60-year-old female well known to me. She was lost to followup following heart catheterization in 2010 as she temporarily moved to [place]. Bhavani has not been feeling well for the past three days, feeling more tired and did not feel like doing much which was unusual for her. She was yesterday at work, around 2:30, sitting at her desk and eating some pretzels when she started experiencing left-sided chest pain under the left breast area - felt like a gas bubble. She had some associated nausea but no shortness of breath. She is somewhat of a vague historian. She felt flushed and had a headache with it. She thought it was some indigestion, so she took some Pepto-Bismol which may have given her a brief and mild relief, but the pain came back straight back. She noticed when she took deep breaths that her pain got temporarily better. There was no radiation of the pain. There was no relationship, worsening or improvement with position, range of motion, activity or breathing, otherwise. The patient continue on and off throughout the day. She called a friend who called a friend who advised her to eat in case she was hungry. She felt better momentarily after eating, but then the pain kept coming back, so her friend drove her to the emergency room. Bhavani also said that she passed gas and that made no improvement in her pain--no difference. In emergency room she was essentially pain free. She received treatment in consultation with emergency room physician and then admitted to the hospital to rule out [place]. She had some pain recurrence around 3 p.m. that was brief. She also had some pain again this morning while lying in bed, rated at 4-5/10, was relieved after morphine and three sublingual nitro's although the final nitro seemed to make the biggest difference according to her daughter who was present during the treatment and her nurse, Ni. Pain is down to 0-1/10. She is still complaining of a headache. REVIEW OF SYSTEMS Positive for headache. Positive for some slurred speech according to her family last evening. Head CT scan in emergency room was negative and speech was back to normal. The patient had some headache but no associated numbness, tingling or weakness. Denied fever, chills or night sweats. Daughter noticed her to be a little short of breath on the phone yesterday. She denies associated dyspnea with her pain. She denies any significant cough, wheezing or phlegm production. Denies orthopnea, PND or lower extremity edema. She denies abdominal pain, hematochezia or melena. Positive for nausea. Negative for hematochezia or coffee-ground emesis. Negative for hematuria or dysuria. Negative for seizure or syncope. PAST MEDICAL/SURGICAL HISTORY 1. Coronary artery disease. Angiogram November 2010 showed proximal LAD long 50% stenosis up to left circumflex artery 40% stenosis, mid RCA 30%, a hyperdynamic left ventricle EF of 75%, LVEDP of 17 mmHg, LVH, and anterior mitral valve leaflets are prolapsed. 2. Mitral regurgitation, 2+, associated with prolapse, normal LV size and function, left atrial size -- echocardiogram December 2010. 3. Hypertension. 4. Dyslipidemia. 5. C6-C7 fracture due to fall required neck surgeries--in 2002 and 2009. 6. Hysterectomy. 7. Skin cancer removal involving the cartilage of the right external ear (follicle). 8 Osteoarthritis, especially in the knees. 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 She has smoked cigarettes up to 1-1/2 packs a day for 36 years on and off and she is back to smoking. She drinks alcohol socially and some tea and coffee. She does not exercise. FAMILY HISTORY Positive for coronary artery disease in her mother, age 56, required a stent Grandmother had _battery?_ complications and from [place]. MEDICATIONS Home medication list reviewed in EMR. ALLERGIES Codeine, hydrocodone, Niacin, oxycodone. PHYSICAL EXAMINATION GENERAL : Alert, oriented x 3. Anxious and a little tearful. Looks in no acute cardiorespiratory distress. Blood pressure 112/60. Pulse rate 58 beats per minute. Respirations 19. O2 sat 95% on 2 liters nasal cannula. She had normal sat on room air a little bit ago. HEAD/NECK: Atraumatic, Normocephalic. Jugular venous pressure normal. Carotid upstrokes equal without bruits. CHEST. Clear to auscultation. She has left-sided chest wall tenderness present. HEART: Regular rate and rhythm with a grade 2/6 systolic murmur best heard at the base of the heart and to the left lower sternal border. ABDOMEN: Soft. Nontender. Nondistended. Normoactive bowel sounds are present. LOWER EXTREMITIES: Without any pitting edema. Peripheral pulses intact, strong throughout. NEUROLOGIC: Without any obvious sensory, motor of focal deficits identified. Cranial nerves are intact. Pupils are equal, round and reactive. DIAGNOSTIC DATA -Reviewed in detail. CBC is normal except for a white count of 11.3. Chemistry is normal except for sodium 146 and BUN of 19. Serial troponin remained normal and less than 0.012. Glucose 113. Liver enzymes and ProBNP are normal. EKG shows sinus rhythm with anterolateral ST-T abnormalities, worse on admission EKG. A chest x-ray report is without acute cardiopulmonary disease. Head CT scan is without intracranial abnormality. IMPRESSION 1. Left-sided chest pain - suspected unstable angina although some atypical features. 2. Mitral regurgitation. 3. Coronary artery disease. 4. Tobacco addiction. 5. Dyslipidemia. 6. Smoker. 7. Positive family history DISCUSSION AND PLAN 1. Admit to surgical unit - initial outpatient status. 2. Serial EKGs and cardiac enzymes. 3. Routine chest pain orders. 4. It was my recommendation to proceed with heart catheterization. Indications, alternatives, risks and benefits and possible complications were discussed fully with the patient and family. They in full agreement to proceed. EZIO
[2016-08-29] MEDS ORDERED: LEVOTHYROXINE 25 MCG TABLET PO SCH (06:30)
--- NOTE | 2016-08-29 08:02 | CVPROF ---
DATE 08/28/2016 PROCEDURE PERFORMED Transradial left heart catheterization LV gram Coronary angiogram INDICATION A 60-year-old female with known mild to moderate coronary artery disease on prior angiogram in 2010 who has hypertension and just started back smoking. She also has dyslipidemia and strong family history. She had some nonspecific ST-T changes on EKG. Troponins remain normal. Her chest pain had some atypical features, seemed to be partially improved following sublingual nitroglycerin but no relationship to physical activity. She also had chest wall reproducible tenderness. Given her presentation, risk factors and known disease, combined with the EKG changes, she was advised on the role of heart catheterization to look for underlying severe or critical coronary artery disease. The understood the indications, alternatives, risks and benefits. She agreed to proceed. PREMEDICATION IV Versed 2 mg, IV fentanyl 50 mcg. NARRATIVE OF PROCEDURE The patient was brought to the cardiac cath laboratory, received IV sedation. I went ahead and, under sterile technique, injected lidocaine 1% about 1 cc in the right wrist, cannulated the right radial artery without difficulty using modified Seldinger percutaneous technique. A 6-[place]izen [place] arterial sheath was introduced in place. The side arm was flushed. Went ahead and aspirated and injected the usual intraarterial drug combo. We also gave patient fluid bolus normal saline due to hypotension at the conclusion of the study. I used a Wakeeney catheter, then I went with a pigtail catheter, 36 ml at 12 ml/sec injection. The procedure was well tolerated. At the conclusion of the study, a TR Band was deployed. Nitroglycerin paste was discontinued. There was no immediate complication. FINDINGS 1. HEMODYNAMICS: LVEDP was normal at 14 mmHg. No transvalvular or subvalvular pressure gradient present. 2. CORONARY ANGIOGRAM: Right coronary artery is large dominant vessel, has a long irregular lesion in the mid RCA. It is moderate and angiographically estimated about 50-60%. Distally, mild plaquing is present. The RPDA and RPLB branches are free from any occlusive disease. There is also mild proximal plaquing in the RCA about 20-30%. Left main coronary artery is relatively short and patent. LAD is a large vessel, gives origin to a small diagonal branch. LAD exhibits mild proximal narrowing, tubular lesion. There is moderate stenosis in the mid LAD present, moderate stenosis angiographically estimated about 60-70% after being examined on multiple projections and that is based on the worst view. The first diagonal branch is large and patent. Second diagonal branch is small. The left circumflex artery is a large nondominant vessel that leads to an obtuse marginal branch. There is a mild proximal stenosis in this circumflex artery. It is estimated about 30%. LV gram shows normal wall motion, normal systolic function, normal ejection fraction of 70%. Post PVC mitral regurgitation is present in the moderate range. There is also underlying mitral regurgitation present outside the arrhythmia, difficult to quantify in setting of arrhythmia. Appears to be an anterior leaflet mitral valve prolapse present. IMPRESSION 1. Moderate two-vessel coronary artery disease including the mid RCA and mid LAD, relatively long lesions as described above. The left circumflex artery exhibits mild proximal plaquing. 2. Normal LV systolic function. 3. Mitral regurgitation - hard to quantify due to PVCs. DISCUSSION AND PLAN 1. Discuss options of management with the patient. They include catheter-based FFR assessment for the function significance of the lesions and/or a followup stress nuclear scan. 2. Outpatient echocardiogram regarding her mitral regurgitation. 3. Strong emphasis on risk factor control with primary care and emphasize to the patient on smoking cessation. EZIO
[2016-08-29] MEDS ORDERED: [UNRECOGNIZED DRUG - OTHER] PO SCH (09:00)
[2016-08-29] MEDS ORDERED: ROSUVASTATIN 20 MG TABLET PO SCH (09:00)
--- NOTE | 2016-08-29 15:21 | DSF ---
DISCHARGE SUMMARY- SAME DAY (OUTPATIENT STATUS) In summary, Bhavani is a complex 60-year-old female with known mild coronary artery disease on a previous angiogram - lost to followup since 2010. She also had 2+ mitral regurgitation. Bhavani presented to the emergency room with increasing amount of stress and worsening left-sided chest pain. She had reproducible chest wall tenderness, but she had some additional ST-ST changes, mild but slightly worse in comparison with the previous EKG. She was admitted to outpatient surgical telemetry bed. Serial troponins remained normal. EKG with recurrent chest pain did not show any additional changes. As a matter of fact , looked a little better. She received morphine and nitroglycerin x 3 with near-complete resolution of her chest pain. We decided to proceed with heart catheterization after explaining indications, alternatives, risks and benefits. This took place and showed some progression of her coronary artery disease with moderate stenosis in the mid RCA and LAD (see cath report). Nevertheless, there was no severe or critical stenosis to explain resting chest pain. It was clear the patient was under distress and she was tearful due to some family situation and she wondered if her stress was causing her problem. I counseled her about her cardiac status and decision is to proceed with additional outpatient testing and treat her with a few days' worth for chest wall pain with ibuprofen as well as a heating pad p.r.n. as well as having sublingual nitroglycerin available p.r.n., and she is to return to the emergency room for persistent or severe chest pain. The patient was ambulatory, feeling much better and chest pain free at the time of discharge. IMPRESSION 1. Chest pain, atypical. 2. Moderate two-vessel coronary artery disease. 3. Mitral regurgitation. 4. Dyslipidemia. 5. Psychosocial stressors. 6. Tobacco abuse. 7. Positive family history. DIET: Heart-healthy diet. Strong emphasis on smoking cessation. (Patient has tried Chantix before.) ACTIVITY: Less than one pound lifting for one week. FOLLOWUP Appointment with Dr. Hany Lerma, PCP, in one week. Appointment with Dr. Cedrick Argueta following outpatient echocardiogram regarding her mitral regurgitation and a stress nuclear scan to help in managing her coronary artery disease based on ischemia and clinical course. DISCHARGE MEDICATIONS Please refer to medication reconciliation form. It also should be noted that ibuprofen 600 mg t.i.d. is added for three days around the clock and then p.r.n. Sublingual nitroglycerin tablets also made available. Metoprolol Extended Release 25 mg daily is started for coronary artery disease for medical management. INSTRUCTIONS: She is to use a heating pad p.r.n. Anxiety management and further discussion of smoking cessation with PCP. EZIO
--- OUTSIDE RECORDS SUMMARY | 2016-09-01 08:56 | XMS REPORT | Continuity of Care Document ---
Author Author [facility] Organization [facility] Address Unknown Phone Unavailable Support Name Relationship Address Phone MARIA DEL ROSARIO HUNT MD Caregiver [address] [place] [address] Unavailable MARIA DEL ROSARIO HUNT MD Caregiver [address] [place] [address] Unavailable SONALI ALTAMIRANO APRN Caregiver [address] [place] [address] Unavailable ASTON MENSAH MD Caregiver [address] [place] [id number] Unavailable GIULIANACARMELO WORTHYNA Next Of Kin Unknown [phone] Insurance Providers Guarantor SergioBhavani L Address [address] [place] [address] * Email DENIED 16 Payer [facility] Policy Number [id number] Subscriber's Name Bhavani Hill Relationship 18 Self Group Number [id number] Advance Directives Directive Response Recorded Date/Time Ordered Resuscitation Status Full Code 08/27/16 9:44pm DPOA for Healthcare Only Y LIA 08/27/16 10:37pm Living Will Yes 08/27/16 10:37pm Problems Past Problems Medical Problem Onset Date Chest pain, rule out acute myocardial infarction Unknown Medications Current Home Medications Medication Dose Units Route Directions Days Qty Instructions Start Date Aspirin 325 Mg Tablet 325 Mg Oral Twice A Day 04/21/16 Ibuprofen 600 Mg Tablet 1 Tab Oral Every 6 Hours as needed for Pain 15 Tablet 08/28/16 Levothyroxine Sodium 25 Mcg Tablet 25 Mcg Oral Before Breakfast 03/13/16 Metoprolol Succinate 25 Mg Tab.er.24h 25 Mg Oral Daily 30 Days 30 Tablet 08/28/16 Nitroglycerin (Nitrostat) 0.4 Mg Tablet 0.4 Mg Sublingual Every 5 Minutes X 3 as needed for Angina 30 Tablet 08/28/16 Rosuvastatin Calcium 20 Mg Tablet 20 Mg Oral Daily 03/12/16 Sinus Aid 1 Tab Oral As Needed 08/27/16 Zijamoringaoleifera 1 Cap Oral Daily 04/21/16 Past [...] Date/Time Onset Date Status Reason for Hospitalization CHEST PAIN, RULE OUT MYOCARDIAL INFARCTION. 2016 4:04pm Not Applicable Not Applicable Hx Substance Use No 08/27/2016 9:22pm Not Applicable Not Applicable Hx Alcohol Use Y occasionally 08/27/2016 9:22pm Not Applicable Not Applicable Has the pt used tobacco in the last 12 months Yes 08/27/2016 10:42pm Not Applicable Not Applicable Query Response Start Date Stop Date Smoking Status Current every day smoker Hospital Discharge Instructions Instructions: Care Instructions: I was in the hospital because (patient own words): "IT FELT LIKE A GAS PAIN" Discharge Diet: heart healthy Discharge Activity: less than 1 LB lifting with Right hand for 1 week. May return back to work thursday (09/01/16) Follow Up Appointments: Follow up with Dr Lerma next wk. Pending Lab / Results: No Pending Lab Expected Signs/Symptoms: mild discomfort Notify Physician If: severe pain ,drainage ,swelling or bleed, call 911 severe or persostent cP call 911 During Business Hours:: Please call the physician's office at or 911 After Business Hours:: Please call [phone] and have the crane operator cab page the physician. or 911 Pain Management/Treatment: tylenol 650 mg ever 6 hrs advil 2-3 every 6 hrs as needed Pain Scale Utilized to Educate Patient: 0-10 Pain Scale Wound/Incision Care: open to air Condition at time of discharge: Good Plan of Care Discharge Date 08/28/16 4:35pm Disposition 01 DISCHARGED HOME, SELF-CARE Instructions/Education Provided [facility] [place] Heart Cath Trans Rad Chest Pain (DC) Prescriptions See Medication Section Additional Instructions/Education -ECHO TO BE DONE IN DR. HUNT'S OFFICE ON AT 11:00. -NUCLEAR SCAN ON 09/09/2016 AT 9:15 AM CHECK IN. Care Plan and Goals See Discharge Instructions Section Functional Status Query Response Date Recorded Mobility Status Ambulatory August 28, 2016 2:02am Assistive Devices None August 28, 2016 2:02am Activity Limitations None August 28, 2016 2:02am Feeding Ability Independent August 28, 2016 2:02am Toileting Ability Independent August 28, 2016 2:02am Grooming Ability Independent August 28, 2016 2:02am Dressing Ability Independent August 28, 2016 2:02am Driving Ability Independent August 28, 2016 2:02am Housework Ability Independent August 28, 2016 2:02am Meal Preparation Ability Independent August 28, 2016 2:02am Stair Climbing Ability Independent August 28, 2016 2:02am Ability to complete ADL's impeded by No change August 28, 2016 2:02am Cognitive/Perceptual Impairments None August 28, 2016 2:02am Allergies, Adverse Reactions, Alerts Allergen Type Severity Reaction Status Last Updated hydrocodone bit Adverse Reaction Mild BUGS CRAWLING ON HER Active 09/08/10 oxycodone HCl Adverse Reaction Mild STOMACH PROBLEMS Active 09/08/10 Niacin Adverse Reaction Unknown SEVERE FLUSHING Active 04/21/16 Codeine Allergy Unknown UNSURE, WAS TOLD NOT TO TAKE IT AGAIN Active 09/08 Immunizations Query Response on File Recorded Date/Time Hx Influenza Vaccination Y fall 201508/27/16 10:42pm Hx Pneumococcal Vaccination Y 201408/27/16 10:42pm Hx Influenza Vaccination Y fall 201508/27/16 10:42pm Influenza Vaccine Hx JAN 2016 08/28/16 6:55am Vital Signs Acute Vital Signs Vital Response Date/Time Temperature (Fahrenheit) 98.9 deg F (96.8 - 99.1) 08/28/2016 12:15pm Temperature (Calculated Celsius) 37.22735 degrees C (36.0 - 37.3) 08/28/2016 12:15pm Temperature Source Oral 08/28/2016 12:15pm Pulse Rate (adult) 68 bpm (60 - 100) 08/28/2016 3:00pm Respiratory Rate 22 breaths/min (10 - 20) 08/28/2016 3:00pm O2 Sat by Pulse Oximetry 97 % (90 - 100) 08/28/2016 3:00pm Oxygen Delivery Method Room Air 08/28/2016 3:00pm Oxygen Delivery Method Nasal Cannula 08/28/2016 10:22am Oxygen Flow Rate 2.00 L/min 08/28/2016 10:22am Blood Pressure 152/68 mm Hg 08/28/2016 3:00pm Blood Pressure Source Automatic Cuff 08/28/2016 3:00pm Height (Feet) 5 feet 08/27/2016 10:36pm Height (Inches) 7.00 inches 08/27/2016 10:36pm Weight (Kilograms) 83.600 kg 08/28/2016 7:09am Body Mass Index (BMI) 28.9 08/27/2016 10:36pm Results Laboratory Results Test Name Result Units Flags Reference Collection Date/Time Result Date/ Time Comments White Blood Count 11.3 T/MM3 H 4.5-11.0 08/27/2016 8:24pm 08/27/2016 8: 29pm Red Blood Count 4.81 M/MM3 4.00-5.20 08/27/2016 8:24pm 08/27/2016 8: 29pm Hemoglobin 14.3 GM/DL 12-16 08/27/2016 8:24pm 08/27/2016 8:29pm Hematocrit 42.5 % 36-46 08/27/2016 8:pm 08/27/2016 8:29pm Mean Corpuscular Volume 88.4 UM3 80-100 08/27/2016 8:24pm 08/27/2016 8: 29pm Mean Corpuscular Hemoglobin 29.7 UUG 26-34 08/27/2016 8:pm 2016 8:29pm Mean Corpuscular Hemoglobin Concent 33.6 GM/DL 31-37 08/27/2016 8:pm 08/27/2016 8:29pm RDW Standard Deviation 45.5 FL 36.9-50.2 08/27/2016 8:pm 08/27/2016 8 :29pm Platelet Count 229 T/MM3 130-400 08/27/2016 8:24pm 08/27/2016 8:29pm Mean Platelet Volume 9.8 UM3 9.4-12.4 08/27/2016 8:24pm 08/27/2016 8: 29pm Neutrophils (%) (Auto) 64.1 % 33-66 08/27/2016 8:pm 08/27/2016 8: 29pm Lymphocytes (%) (Auto) 26.9 % 23-45 08/27/2016 8:pm 08/27/2016 8: 29pm Monocytes (%) (Auto) 7.1 % 0-9.0 08/27/2016 8:08/27/2016 8:29pm Eosinophils (%) (Auto) 1.2 % 0-4 08/27/2016 8:08/27/2016 8:29pm Basophils (%) (Auto) 0.4 % 0-2 08/27/2016 8:08/27/2016 8:29pm Immature Granulocyte % (Auto) 0.3 % 0.0-0.5 08/27/2016 8:2016 8:29pm Absolute Neutrophils (auto) 7.3 T/MM3 1.8-7.7 08/27/2016 8:2016 8:29pm Absolute Lymphocytes (auto) 3.1 T/MM3 1-4.8 08/27/2016 8:2016 8:29pm Absolute Monocytes (auto) 0.8 T/MM3 0-0.8 08/27/2016 8:pm 08/27/2016 8:29pm Absolute Eosinophils (auto) 0.1 T/MM3 0-0.5 08/27/2016 8:2016 8:29pm Absolute Basophils (auto) 0.0 T/MM3 0-0.2 08/27/2016 8:08/27/2016 8:29pm Absolute Immature Granulocyte (auto 0.03 T/MM3 0.00-0.03 08/27/2016 8: 08/27/2016 8:29pm D-Dimer < 150 NG/ML 0-230 08/27/2016 8:08/27/2016 8:41pm <230 NG/ ML D-DU=PRESUMPTIVE NEGATIVE FOR PE OR DVT >230 NG/ML D-DU=ADDITIONAL EVAL FOR PE OR DVT RECOMMENDED Icterus Index < 2 0-7 08/27/2016 8:08/27/2016 8:43pm Chemistry Specimen Hemolysis < 15 0-25 08/28/2016 8:10am 08/28/2016 8 :49am 0-25: Specimen Exhibited No Hemolysis. Turbidity < 20 0-20 08/27/2016 8:pm 08/27/2016 8:43pm Sodium Level 146 MEQ/L H 134-144 08/27/2016 8:pm 08/27/2016 8:43pm Potassium Level 3.9 MEQ/L 3.6-5 08/27/2016 8:08/27/2016 8:43pm Chloride Level 107 MEQ/L 98-107 08/27/2016 8:08/27/2016 8:43pm Carbon Dioxide Level 25 MEQ/L 22-30 08/27/2016 8:08/27/2016 8: 43pm Anion Gap 14 MEQ/L 5-15 08/27/2016 8:08/27/2016 8:43pm Blood Urea Nitrogen 19.0 MG/DL H 7-17 08/27/2016 8:08/27/2016 8: 43pm Creatinine 0.7 MG/DL 0.7-1.2 08/27/2016 8:08/27/2016 8:43pm BUN/Creatinine Ratio 27 RATIO H 6-26 08/27/2016 8:08/27/2016 8: 43pm Glomerular Filtration Rate Calc 85 08/27/2016 8:08/27/2016 8: 43pm Glucose Level 113 MG/DL H 65-110 08/27/2016 8:08/27/2016 8:43pm Calculated Osmolality 284 MOSM/KG H 261-280 08/27/2016 8:2016 8:43pm Calcium Level 10.2 MG/DL 8.4-10.2 08/27/2016 8:08/27/2016 8:43pm Total Bilirubin 0.60 MG/DL 0.20-1.30 08/27/2016 8:08/27/2016 8: 43pm Alkaline Phosphatase 89 U/L 38-126 08/27/2016 8:08/27/2016 8:43pm Total Protein 7.4 G/DL 6.3-8.2 08/27/2016 8:08/27/2016 8:43pm Albumin 4.4 G/DL 3.5-5.0 08/27/2016 8:23pm 08/27/2016 8:43pm Globulin 3.0 G/DL 2.4-3.6 08/27/2016 8:23pm 08/27/2016 8:43pm Albumin/Globulin Ratio 1.5 RATIO 1.1-2.2 08/27/2016 8:23pm 08/27/2016 8 :43pm Aspartate Amino Transf (AST/SGOT) 26 U/L 14-36 08/27/2016 8:23pm 2016 8:43pm Alanine Aminotransferase (ALT/SGPT) 32 U/L 9-52 08/27/2016 8:23pm 08/27 8:43pm Troponin I < 0.012 ng/ml 0-0.12 08/28/2016 8:10am 08/28/2016 8:49am Troponin values with a difference of 55% increase from orginal troponin value represent a true biological DELTA value. (%increase Calc=Orginal Troponin value, divided by subsequent Troponin value, multiplied by 100) QW-Ira-D-Type Natriuretic Peptide 50 PG/ML 0-175 08/27/2016 8:23pm 04/2017 8:53pm Rule in cut points: <50 years old=450; 50-75 years old=900; >75 years old=1800; When utilizing ProBNP rule-in cut points, adjustment for impaired renal function is typically not required. Magnesium Level 2.2 MG/DL 1.6-2.3 08/27/2016 8:23pm 08/27/2016 8:43pm Name: BHAVANI HILL Unit #: [id number] : 1955 Sex: F Admit Date: 08/27/16 Loc / Svc: SRG Discharge Date: DIAGNOSTIC IMAGING REPORT Report #: [id number] [facility] [place] Indication: ITS.REASON: ?slurring of speech PROCEDURE: CT HEAD W/O CONTRAST: Encounter: Initial Comparison: None Technique: Axial CT images through the head were performed without contrast. Iterative Reconstruction dose reducing technique was utilized. FINDINGS: The ventricles are of normal size, shape, and contour for the patient's age. There are scattered areas of low attenuation in the white matter which most likely represent changes from chronic microvascular ischemia. The brainstem, cerebellum, and cerebral hemispheres otherwise have a normal morphology and CT attenuation. There is no evidence of midline displacement. No hemorrhage, signs of acute territorial stroke, mass effect, mass lesions, or edema is evident. The visualized portions of the skull base, midface, and calvarium demonstrate no abnormality. The paranasal sinuses are well aerated and free of significant disease. The tympanic and mastoid cavities appear normal. IMPRESSION: No acute intracranial abnormality or hemorrhage. There is a preliminary report by virtual radiologic. . Procedures No known history of procedures. Encounters Encounter Location Arrival/Admit Date Discharge/Depart Date Attending Provider Discharged Inpatient (obs) [facility] 08/27/16 9:44pm 08/28/16 4: 35pm MARIA DEL ROSARIO HUNT MD
== END 2016-08-28 16:35 | disposition home or self-care (01) ==
LOC: ED 19:23 → SRG 21:44 → UNDOADMOB 21:44 → EDHOLD 21:44 → CATH 21:44 → EDHOLD 22:28 → SRG 22:28 → CATH 08-28 16:35 → UNDODISOB 08-28 16:35
PROVIDERS: ATTEND Internal Medicine Cardiovascular Disease
DX: R07.89 Other chest pain (principal); I25.10 Atherosclerotic heart disease of native coronary artery without angina pectoris; I34.0 Nonrheumatic mitral (valve) insufficiency; E78.5 Hyperlipidemia, unspecified; I49.3 Ventricular premature depolarization; Z73.3 Stress, not elsewhere classified; Z82.49 Family history of ischemic heart disease and other diseases of the circulatory system; F17.210 Nicotine dependence, cigarettes, uncomplicated; I10 Essential (primary) hypertension; Z87.828 Personal history of other (healed) physical injury and trauma; M17.0 Bilateral primary osteoarthritis of knee
CPT/HCPCS: 36415; 70450; 71010; 80053; 83735; 83880; 84484; 85025; 85379; 93005; 93458; 96361; 96374; 96375; 99218; 99284; C1893; J1644; J1650; J1885; J2250; J2405; J3010; J3490; J7030; Q9967

== ENCOUNTER → 2016-09-09 | Outpatient (CLI) | payer BC ==
[~2016-09-09] VITALS: Ht 170.2 cm; Wt 84.0 kg
[~2016-09-09] MED LIST changes: -AMOX500C2 PO; -FLUT9.9S EA NOSTRIL; -GUAI120015 PO; -IBUP-1547 PO; +IBUP-2067 PO; +METO-275 PO; +NITR0.4T SL; -POLY17PO6 PO; +REGADENOSON 0.4mg/5ml INJECTION IV ONE; +SALINE FLUSH 10ml SYRINGE ONE; -TRAM50TA53 PO; -VARE1TAB22 PO; -Zicam; +[UNRECOGNIZED DRUG - OTHER] PO
--- NOTE | 2016-09-10 21:34 | ADENOSINEF ---
EXERCISE TREADMILL STRESS NUCLEAR SCAN DATE OF PROCEDURE 09/09/2016 INDICATIONS Atypical chest pain. Recent coronary angiogram showed LAD stenosis. This is to look for reversible ischemia in help managing her coronary artery disease and assess need for revascularization. The patient understood the indication and rationale of the study and she is in agreement. The patient was injected with a 99mTc Myoview dose of 13.1 mCi. She then exercised per Sawyer protocol for 7 minutes 36 seconds, achieving a rise in blood pressure from a resting of 161/88 and heart rate 74 beats per minute, to a peak blood pressure of 198/79 with peak heart rate 150 which is 94% of age-predicted maximum heart rate. The patient did not experience angina with the stress test. Rest EKG showed sinus rhythm, 60 beats per minute. Small narrow Q-waves are seen in inferolateral leads, II, III, aVF, V4 through V6. During the stress test there was no arrhythmia. No diagnostic ST-depression. Slightly upsloped changes. In recovery, however, about three minutes, there was ST-segment depression. For example, borderline 0.8 to 1 mm in II, III, aVF, V3 through V6. This falls short of meeting the 1.5 mm criteria for ischemia in recovery. Stress and rest perfusion images were reviewed. Unfortunately, the stress images are somewhat of a relatively low uptake study and the rest images exhibit adjacent gut uptake overlying the inferior wall and making it artificially "hot." The computer-derived SSS and SDS parameters were 0. Visually, however, there was equivocally reduced uptake more on rest images as compared with stress images noted in the anteroseptum, again with apparent mild redistribution, also inconsistently seen in some portions of the lateral wall, again having the stress images of a lower radioactivity uptake in comparison with rest images making the interpretation for reversible ischemia much more difficult and less certain unfortunately. Gated images show normal wall motion, normal contractility, normal LV ejection fraction measured at 59% on stress images and 70% on rest images. IMPRESSION 1. Maximal exercise treadmill stress test clinically negative for angina at 7 minutes 30 seconds per Sawyer protocol. 2. Hypertensive and appropriate heart rate response to exercise. 3. Electrically, ST-segment depression noted in recovery, 0.8-1mm, falls short of meeting St-depression criteria in recovery. 4. Stress and rest perfusion images show equivocal reversible ischemia in the anteroseptum and portions of the lateral wall. Unfortunately, the images are limited by some breast tissue attenuation artifact as well as technical aspects related to relatively low uptake stress images and adjacent gut uptake. 5. Clinical correlation and further discussion with the patient regarding management is warranted. Will discuss with the patient. TRUD
== END ==
LOC: IMA 09:06
PROVIDERS: ATTEND Internal Medicine Cardiovascular Disease
DX: R94.39 Abnormal result of other cardiovascular function study (principal); R03.0 Elevated blood-pressure reading, without diagnosis of hypertension; R07.9 Chest pain, unspecified
CPT/HCPCS: 93017